=== PATIENT | female | born 1975 | race Caucasian/White ===

== ENCOUNTER 2017-03-19 12:00 | Inpatient (IN) | payer OTHER ==
[~2017-03-19] VITALS: Ht 157.5 cm; Wt 71.4 kg
[2017-03-19 12:04] VITALS: BP 107/64; PULSE 86; RESP 15; TEMP 98.4; O2SAT 98
--- NOTE | 2017-03-19 12:08 | PD ---
Physical Exam Date Seen by Provider: Mar 19, 2017 Time Seen by Provider: 12:05 Narrative Pt is a 41 year old female presenting voluntarily for psychiatric evaluation. Pt reports feeling depressed and overwhelmed. Pt is tearful in triage. She states this has been going on for a while. She states she was taking phentermine for energy which seemed to mask her symptoms. She had been on medications in the past for anxiety, which she discontinued herself.She states she didn't feel comfortable driving her kids while on the medications. Pt reports feeling suicidal. VSS, awaiting bed placement. [facility] Supervised Visit with RENETTA: Terri Mera Mar 19, 2017 12:08
--- NOTE | 2017-03-19 12:28 | PD ---
HPI . suicidal ideation/depression/anxiety Chief Complaint: Suicide Ideation/Attempt Time Seen by Provider: 12:20 Travel History International Travel<30 days: Yes Contact w/Intl Traveler<30days: Yes Name of Country Traveled to: [place] Traveled to known affect area: No History of Present Illness HPI 41- year old female presents to the ED complaining of not feeling well for the past few months. She reports spurts of energy and then insomnia. She reports during the times of energy she does some of the best writing she ever has and has great ideas. She also reports that during the times of energy and feeling well she goes on spending sprees. However, she reports on the opposite spectrum other days she has a tough time just getting out of bed. She reports use of phentermine for years, which she originally used to lose weight. However, she reports now she is using the phentermine for energy. The patient normally receives her phentermine from her primary care, but reports since work is taking so much of her time she has been unable to go see them for a refill. She reports that she uses THC to help her fall asleep at night. She denies any current SI/HI, but reports that they come and go and does have a plan. When asked about the plan the patient became very emotional and was unable to provide details. She reports that she does not feel safe at home because she lives by herself. PFSH Past Medical History Depression: Yes Kidney Stones: Yes Psychiatric: Yes Tetanus Vaccination: Unknown ?: Not Past Surgical History Surgical History: No Previous Surgery Social History Alcohol Use: No Tobacco Use: Yes Substance Use: No Allergies-Medications (Allergen,Severity, Reaction): Coded Allergies: No Known Allergies (Unverified , 03/19/17) Reported Meds & Prescriptions Reported Meds & Active Scripts Active No Active Prescriptions or Reported Medications Review of Systems General / Constitutional: No: Fever, Chills, Weight Gain, Weight Loss, Other Eyes: No: Diploplia, Blurred Vision, Photophobia, Drainage, Redness, Foreign Body Sensation, Pain, Tearing, Blind Spots, Visual changes, Blindness, Other HENT: No: Headaches, Vertigo, Lightheadedness, Sore Throat, Rhinitis, Rhinorrhea, Congestion, Nosebleed, Neck Stiffness, Neck Pain, Masses, Gingival Bleeding, Dental Difficulties, Ear Discharge, Earache, Other Cardiovascular: No: Chest Pain or Discomfort, Palpitations, Irregular Rhythm, Tachycardia, Diaphoresis, Syncope, Dyspnea on exertion, Varicosities, Edema, Cyanosis, Varicosities, Phlebitis, Claudication, Other Respiratory: No: Cough, Shortness of Breath, Wheezing, Sneezing, Orthopnea, Hemoptysis, Stridor, Night Sweats, Pleuritic Pain, Other Gastrointestinal: No: Nausea, Vomiting, Diarrhea, Abdominal Pain, Hematemesis, Hematochezia, Constipation, Changes in Bowel Habits, Indigestion, Dysphagia, Loss of Appetite, Other Genitourinary: No: Urgency, Frequency, Dysuria, Nocturia, Hematuria, Decreased Urinary Output, Oliguria, Hesitancy, Dribbling, Incontinence, Pelvic Pain, Flank Pain, Dyspareunia, Discharge, Dysmenorrhea, Menorrhagia, Metorrhagia, Vaginal Bleeding, Other Musculoskeletal: No: Myalgias, Arthralgias, Limited ROM, Weakness, Cramping, Edema, Pain, Atrophy, Other Skin: No Rash, No Itching, No Dryness, No Lumps, No Hives, No Change in Pigmentation, No Change in nails, No Alopecia, No Lesions, No Breast Lumps, No Breast Tenderness, No Breast Swelling, No Other Neurologic: No: Weakness, Dizziness, Syncope, Focal Abnormalities, Coordination Problem, Tremor, Ataxia, Headache, Change in Mentation, Slurred Speech, Paresthesia, Incontinence, Seizures, Sensory Disturbance, Other Psychiatric: Positive: Anxiety, Depression, Suicidal Ideations, Mood Disorder, Substance Abuse, No: Disorder of Thought, Homicidal Ideation, Other Endocrine: No: Heat Intolerance, Cold Intolerance, Polyuria, Polydipsia, Other Hematologic/Lymphatic: No: Easy Bruising, Lymph Node Enlargement, Other Physical Exam Narrative GENERAL: AAO x3. comfortable in bed SKIN: Warm and dry. HEAD: Atraumatic. Normocephalic. EYES: Pupils equal and round. No scleral icterus. No injection or drainage. ENT: No nasal bleeding or discharge. Mucous membranes pink and moist. NECK: Trachea midline. No JVD. CARDIOVASCULAR: Regular rate and rhythm. RESPIRATORY: No accessory muscle use. Clear to auscultation. Breath sounds equal bilaterally. GASTROINTESTINAL: Abdomen soft, non-tender, nondistended. No rebound or guarding MUSCULOSKELETAL: Extremities without clubbing, cyanosis, or edema. No obvious deformities. NEUROLOGICAL: Awake and alert. No obvious cranial nerve deficits. Motor grossly within normal limits. Five out of 5 muscle strength in the arms and legs. Normal speech. PSYCHIATRIC: Appropriate mood and affect; insight and judgment normal. Data Data Last Documented VS Vital Signs Date Time Temp Pulse Resp B/P (MAP) Pulse Ox O2 Delivery O2 Flow Rate FiO2 03/19/17 12:04 98.4 86 15 107/64 (78) 98 Orders Orders Complete Blood Count With Diff (03/19/17 12:30) Comprehensive Metabolic Panel (03/19/17 12:30) Ed Urine Pregnancytest Poc (03/19/17 12:30) Psych Screen (03/19/17 12:30) Drug Screen, Random Urine (03/19/17 12:30) Labs Laboratory Tests Test 03/19/17 12:40 03/19/17 12:45 White Blood Count 8.9 TH/MM3 Red Blood Count 4.27 MIL/MM3 Hemoglobin 10.9 GM/DL Hematocrit 33.4 % Mean Corpuscular Volume 78.2 FL Mean Corpuscular Hemoglobin 25.5 PG Mean Corpuscular Hemoglobin Concent 32.7 % Red Cell Distribution Width 15.8 % Platelet Count 273 TH/MM3 Mean Platelet Volume 9.7 FL Neutrophils (%) (Auto) 73.5 % Lymphocytes (%) (Auto) 20.2 % Monocytes (%) (Auto) 5.0 % Eosinophils (%) (Auto) 0.6 % Basophils (%) (Auto) 0.7 % Neutrophils # (Auto) 6.6 TH/MM3 Lymphocytes # (Auto) 1.8 TH/MM3 Monocytes # (Auto) 0.4 TH/MM3 Eosinophils # (Auto) 0.1 TH/MM3 Basophils # (Auto) 0.1 TH/MM3 CBC Comment DIFF FINAL Differential Comment Blood Urea Nitrogen 17 MG/DL Creatinine 0.80 MG/DL Random Glucose 89 MG/DL Total Protein 7.3 GM/DL Albumin 3.7 GM/DL Calcium Level 9.1 MG/DL Alkaline Phosphatase 60 U/L Aspartate Amino Transf (AST/SGOT) 18 U/L Alanine Aminotransferase (ALT/SGPT) 21 U/L Total Bilirubin 0.4 MG/DL Sodium Level 138 MEQ/L Potassium Level 3.4 MEQ/L Chloride Level 105 MEQ/L Carbon Dioxide Level 25.9 MEQ/L Anion Gap 7 MEQ/L Estimat Glomerular Filtration Rate 79 ML/MIN Urine Opiates Screen NEG Urine Barbiturates Screen NEG Urine Amphetamines Screen NEG Urine Benzodiazepines Screen NEG Urine Cocaine Screen NEG Urine Cannabinoids Screen POS MDM Medical Decision Making Medical Screen Exam Complete: Yes Emergency Medical Condition: Yes Medical Record Reviewed: Yes Differential Diagnosis Bipolar disorder, Suicidal Ideation, Depression, Anxiety Narrative Course 41 yr old female here with anxiety,depression and suicidal thoughts. She has no medical complaints. Labs have been ordered. She is awaiting psych screen. Laboratory Tests Test 03/19/17 12:40 03/19/17 12:45 White Blood Count 8.9 TH/MM3 Red Blood Count 4.27 MIL/MM3 Hemoglobin 10.9 GM/DL Hematocrit 33.4 % Mean Corpuscular Volume 78.2 FL Mean Corpuscular Hemoglobin 25.5 PG Mean Corpuscular Hemoglobin Concent 32.7 % Red Cell Distribution Width 15.8 % Platelet Count 273 TH/MM3 Mean Platelet Volume 9.7 FL Neutrophils (%) (Auto) 73.5 % Lymphocytes (%) (Auto) 20.2 % Monocytes (%) (Auto) 5.0 % Eosinophils (%) (Auto) 0.6 % Basophils (%) (Auto) 0.7 % Neutrophils # (Auto) 6.6 TH/MM3 Lymphocytes # (Auto) 1.8 TH/MM3 Monocytes # (Auto) 0.4 TH/MM3 Eosinophils # (Auto) 0.1 TH/MM3 Basophils # (Auto) 0.1 TH/MM3 CBC Comment DIFF FINAL Differential Comment Blood Urea Nitrogen 17 MG/DL Creatinine 0.80 MG/DL Random Glucose 89 MG/DL Total Protein 7.3 GM/DL Albumin 3.7 GM/DL Calcium Level 9.1 MG/DL Alkaline Phosphatase 60 U/L Aspartate Amino Transf (AST/SGOT) 18 U/L Alanine Aminotransferase (ALT/SGPT) 21 U/L Total Bilirubin 0.4 MG/DL Sodium Level 138 MEQ/L Potassium Level 3.4 MEQ/L Chloride Level 105 MEQ/L Carbon Dioxide Level 25.9 MEQ/L Anion Gap 7 MEQ/L Estimat Glomerular Filtration Rate 79 ML/MIN Urine Opiates Screen NEG Urine Barbiturates Screen NEG Urine Amphetamines Screen NEG Urine Benzodiazepines Screen NEG Urine Cocaine Screen NEG Urine Cannabinoids Screen POS I discussed results with patient and she is awaiting psych screen. patient medically cleared for psych screen. Diagnosis Primary Impression: Anxiety Additional Impression: Suicidal thoughts Scripts No Active Prescriptions or Reported Meds Condition: Stable Romina Ring Mar 19, 2017 12:28
[2017-03-19 12:59] LABS: AUTOMATED NEUTROPHIL # 6.6 TH/MM3 (1.8-7.7); BASOPHIL # 0.1 TH/MM3 (0-0.2); BASOPHIL % 0.7 % (0.0-2.0); EOSINOPHIL # 0.1 TH/MM3 (0-0.4); EOSINOPHIL % 0.6 % (0.0-4.0); HEMATOCRIT 33.4 % (35.0-46.0); HEMO FLAGS DIFF FINAL; LYMPH % 20.2 % (9.0-44.0); LYMPHOCYTE # 1.8 TH/MM3 (1.0-4.8); MEAN CELL VOLUME 78.2 FL (80.0-100.0); MEAN CORPUSCULAR HEMOGLOBIN 25.5 PG (27.0-34.0); MEAN CORPUSCULAR HGB CONC 32.7 % (32.0-36.0); NEUT % 73.5 % (16.0-70.0); PLATELET COUNT 273 TH/MM3 (150-450); RED BLOOD COUNT 4.27 MIL/MM3 (4.00-5.30); RED CELL DISTRIBUTION WIDTH 15.8 % (11.6-17.2); WHITE BLOOD COUNT 8.9 TH/MM3 (4.0-11.0)
[2017-03-19 13:21] LABS: ANION GAP 7 MEQ/L (5-15); AST (GOT) 18 U/L (15-37); BICARBONATE 25.9 MEQ/L (21.0-32.0); BLOOD UREA NITROGEN 17 MG/DL (7-18); CHLORIDE 105 MEQ/L (98-107); GLOMERULAR FILTRATION RATE 79 ML/MIN (>89); POTASSIUM 3.4 MEQ/L (3.5-5.1); SODIUM (NA) 138 MEQ/L (136-145)
[2017-03-19 13:22] LABS: ALT (GPT) 21 U/L (10-53)
[2017-03-19 13:24] LABS: ALKALINE PHOSPHATASE 60 U/L (45-117); TOTAL BILIRUBIN ADULT 0.4 MG/DL (0.2-1.0)
[2017-03-19 15:18] VITALS: BP 110/70; PULSE 84; RESP 18; O2SAT 100
[2017-03-19] MEDS ORDERED: ACETAMINOPHEN 325 MG TAB PO PRN (15:30)
[2017-03-19] MEDS ORDERED: ALUMINUM/MAGNESIUM/SIMETH 30 ML CUP PO PRN (15:30)
[2017-03-19] MEDS ORDERED: LORazepam 2 MG/ML VIAL IM PRN ×2 (15:30)
[2017-03-19] MEDS ORDERED: MAGNESIUM HYDROXIDE SUSP 30 ML CUP PO PRN (15:30)
[2017-03-19] MEDS ORDERED: LORazepam 0.5 MG TAB PO PRN (15:30)
--- NOTE | 2017-03-19 15:37 | HHI.HP ---
Provisional Diagnosis Admission Date [place] I. Bipolar, mixed type Certification of Person's Competence To Provide Express and Informed Consent I have personally examined Lindsay Rice , a person being served at [facility] on, Mar 19, 2017 15:25. Express and informed consent means consent voluntarily given in writing, by a competent person, after sufficient explanation and disclosure of the subject matter involved to enable the person to make a knowing and willful decision without any element of force, fraud, deceit, duress, or other form of constraint or coercion. This person is 18 years of age or older, is not now known to be incompetent to consent to treatment with a guardian advocate, and does not have a health care surrogate or proxy currently making medical treatment decisions. I have found this person to be one of the following: [x] Competent to provide express and informed consent, as defined above, for voluntary admission to this facility and is competent to provide express and informed consent for treatment. He/she has the consistent capacity to make well reasoned, willful, and knowing decisions concerning his or her medical or mental health treatment. The person fully and consistently understands the purpose of the admission for examination/placement and is fully capable of personally exercising all rights assured [place] Incompetent to provide express and informed consent to voluntary admission, and this is incompetent to provide express and informed consent to treatment. The person must be transferred to involuntary status and a petition for a guardian advocate filed with the Circuit Court. [] Refusing to provide express and informed consent to voluntary admission but is competent to provide express and informed consent for treatment. The person must be discharged or transferred to involuntary status. Form shall be completed within 24 hours of a person's arrival at the receiving facility and filed in the clinical record of each person: 1. Admitted on a voluntary basis 2. Permitted to provide express and informed consent to his/her own treatment 3. Allowed to transfer from involuntary to voluntary status 4. Prior to permitting a person to consent to his or her own treatment after having been previously found incompetent to consent to treatment. History of Present Illness Capacity: Has Capacity HPI 41-year-old female Long acted by this physician for suicidal ideation and mixed bipolar disorder. This is the patient's first psychiatric hospitalization. Apparently over the last several weeks she has become increasingly manic with pressured speech, flight of ideas, racing thoughts, increasing goal-directed activity, inability to sleep, loss of appetite, excessive spending, etc. She was brought in today by her sister. The sister both in person and over the phone feels the patient's behavior has become much different than baseline. The sister confirmed the patient's suicidal thinking. The sister also provided information indicating the father is diagnosed with bipolar disorder. Patient is a very poor historian as she jumps from thought to thought in the midst of crying and making little sense. Review of Systems ROS Limitations: Clinical Condition Except as stated in HPI: all other systems reviewed are Neg Past Psych History Psychological trauma history Denied Violence risk - others (6 mos) Minimal to moderate Violence risk - self (6 mos) High Substance Abuse History Drugs/Alcohol past 12 months Reportedly taking diet pills which may have instigated this episode of kristel and depression. Patient denies substance abuse. Past Family Social History Coded Allergies: No Known Allergies (Unverified , 03/19/17) No Active Prescriptions or Reported Meds Family History Positive for bipolar disorder. Social History Patient lives with her of approximately 2 years and their 2 children. 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 However, she is unable to provide a good and cogent history. She is markedly distraught, tearful and unable to calmly discuss her situation. Patient's Strengths (min. 2) Resilient and has access to healthcare. Physical Exam GENERAL: SKIN: Warm and dry. HEAD: Normocephalic. EYES: No scleral icterus. No injection or drainage. NECK: Supple, trachea midline. No JVD or lymphadenopathy. CARDIOVASCULAR: Regular rate and rhythm without murmurs, gallops, or rubs. RESPIRATORY: Breath sounds equal bilaterally. No accessory muscle use. GASTROINTESTINAL: Abdomen soft, non-tender, nondistended. MUSCULOSKELETAL: No cyanosis, or edema. BACK: Nontender without obvious deformity. No CVA tenderness. Vital Signs Vital Signs Date Time Temp Pulse Resp B/P (MAP) Pulse Ox O2 Delivery O2 Flow Rate FiO2 03/19/17 15:18 84 18 110/70 (83) 100 Room Air 03/19/17 12:04 98.4 Lab Results Test 03/19/17 12:40 03/19/17 12:45 White Blood Count 8.9 TH/MM3 Red Blood Count 4.27 MIL/MM3 Hemoglobin 10.9 GM/DL Hematocrit 33.4 % Mean Corpuscular Volume 78.2 FL Mean Corpuscular Hemoglobin 25.5 PG Mean Corpuscular Hemoglobin Concent 32.7 % Red Cell Distribution Width 15.8 % Platelet Count 273 TH/MM3 Mean Platelet Volume 9.7 FL Neutrophils (%) (Auto) 73.5 % Lymphocytes (%) (Auto) 20.2 % Monocytes (%) (Auto) 5.0 % Eosinophils (%) (Auto) 0.6 % Basophils (%) (Auto) 0.7 % Neutrophils # (Auto) 6.6 TH/MM3 Lymphocytes # (Auto) 1.8 TH/MM3 Monocytes # (Auto) 0.4 TH/MM3 Eosinophils # (Auto) 0.1 TH/MM3 Basophils # (Auto) 0.1 TH/MM3 CBC Comment DIFF FINAL Differential Comment Blood Urea Nitrogen 17 MG/DL Creatinine 0.80 MG/DL Random Glucose 89 MG/DL Total Protein 7.3 GM/DL Albumin 3.7 GM/DL Calcium Level 9.1 MG/DL Alkaline Phosphatase 60 U/L Aspartate Amino Transf (AST/SGOT) 18 U/L Alanine Aminotransferase (ALT/SGPT) 21 U/L Total Bilirubin 0.4 MG/DL Sodium Level 138 MEQ/L Potassium Level 3.4 MEQ/L Chloride Level 105 MEQ/L Carbon Dioxide Level 25.9 MEQ/L Anion Gap 7 MEQ/L Estimat Glomerular Filtration Rate 79 ML/MIN Urine Opiates Screen NEG Urine Barbiturates Screen NEG Urine Amphetamines Screen NEG Urine Benzodiazepines Screen NEG Urine Cocaine Screen NEG Urine Cannabinoids Screen POS Mental Status Examination Speech: Pressured Orientation: x3 Memory: Unremarkable Thought Process: Flight of Ideas, Goal Directed Thought Content: Depersonal, Bizarre thinking, Derealization, Ideas of Reference Hallucination Type: None Attention and Concentration: Easily Distracted Suicidal Ideation: Yes Previous Suicide Attempts: No Homicidal Ideation: No Previous Homicide Attempts: No Insight: Fair Judgment: Unrealistic Affect: Anxious, Sad Affect if Inappropriate: Labile Mood: Sad, Anxious Motor Activity: Normal gait Assessment & Plan Problem List: (1) Bipolar disorder, curr episode mixed, severe, w/o psychotic features ICD Codes: F31.63 - Bipolar disorder, current episode mixed, severe, without psychotic features Status: Acute Assessment & Plan Estimated LOS: days 41-year-old female placed under a Long act by this physician for what appears to be her first severe bipolar episode with suicidal thinking. Patient is on the cusp of being psychotic and she exhibits bizarre thinking with flight of ideas as well as suicidal ideation. She is felt to be at high risk for self-harm. Patient being admitted for evaluation and treatment. This physician is ordering a CBC and comprehensive metabolic panel to assess whether the patient has an infection or metabolic process that is causing or contributing to her psychiatric condition. Additionally, we will obtain a thyroid stimulating hormone level, vitamin B-12 level and vitamin D level to determine if any deficiencies in these areas are causing or contributing to her current mixed manic and depressed state. This physician spoke with the patient's nurse and the patient's sister regarding her current condition and we will involve case management to obtain further information and assist with disposition planning. The patient is also to receive an EKG in case cardiac conduction issues warrant investigation prior to starting psychotropic medicines. In the meantime, we will offer the patient benzodiazepines to help her with her current distress. Bryson Mansfield MD Mar 19, 2017 15:37
[2017-03-19] MEDS ORDERED: clonazePAM 1 MG TAB PO PRN (15:45)
[2017-03-19 16:26] VITALS: BP 122/81; PULSE 67; RESP 18; O2SAT 98
[2017-03-19 18:56] VITALS: BP 123/65; PULSE 72; RESP 18; O2SAT 100
[2017-03-19 20:15] VITALS: BP 109/60; PULSE 67; RESP 18; TEMP 97.8; O2SAT 99
[2017-03-19] MEDS: LORazepam 1 MG TAB PO PRN (21:40)
[2017-03-20 06:27] VITALS: BP_SYST 102; BP_SYST 90; BP_DIAS 63; BP_DIAS 68; PULSE 90; RESP 18; TEMP 98; O2SAT 100
[2017-03-20] MEDS: LORazepam 1 MG TAB PO PRN (09:53)
[2017-03-20] MEDS: NICOTINE 21 MG/24 HR PATCH T-DERMAL SCH (12:11)
[2017-03-20 12:55] LABS: AUTOMATED NEUTROPHIL # 5.9 TH/MM3 (1.8-7.7); BASOPHIL # 0.1 TH/MM3 (0-0.2); BASOPHIL % 0.7 % (0.0-2.0); EOSINOPHIL # 0.1 TH/MM3 (0-0.4); EOSINOPHIL % 0.9 % (0.0-4.0); HEMATOCRIT 35.1 % (35.0-46.0); HEMO FLAGS DIFF FINAL; LYMPH % 23.6 % (9.0-44.0); LYMPHOCYTE # 2.1 TH/MM3 (1.0-4.8); MEAN CELL VOLUME 79.2 FL (80.0-100.0); MEAN CORPUSCULAR HEMOGLOBIN 25.8 PG (27.0-34.0); MEAN CORPUSCULAR HGB CONC 32.5 % (32.0-36.0); MONO % 7.7 % (0.0-8.0); NEUT % 67.1 % (16.0-70.0); PLATELET COUNT 286 TH/MM3 (150-450); RED BLOOD COUNT 4.43 MIL/MM3 (4.00-5.30); RED CELL DISTRIBUTION WIDTH 15.5 % (11.6-17.2); WHITE BLOOD COUNT 8.8 TH/MM3 (4.0-11.0)
[2017-03-20 13:18] LABS: ANION GAP 11 MEQ/L (5-15); BICARBONATE 25.5 MEQ/L (21.0-32.0); BLOOD UREA NITROGEN 14 MG/DL (7-18); CHLORIDE 103 MEQ/L (98-107); GLOMERULAR FILTRATION RATE 86 ML/MIN (>89); POTASSIUM 3.4 MEQ/L (3.5-5.1); SODIUM (NA) 139 MEQ/L (136-145)
[2017-03-20 14:13] LABS: ALKALINE PHOSPHATASE 63 U/L (45-117); ALT (GPT) 24 U/L (10-53); AST (GOT) 14 U/L (15-37); HDL CHOLESTEROL 56.1 MG/DL (40.0-60.0); LDL CHOLESTEROL 121 MG/DL (0-99); TOTAL BILIRUBIN ADULT 0.4 MG/DL (0.2-1.0)
--- NOTE | 2017-03-20 15:05 | HHI.PYPN ---
Subjective Remarks Patient is a 41 y/o woman with unclear past psychiatric history but past diagnoses of anxiety and panic disorder as per patient, no prior psychiatric hospitalizations, prior suicide attempt or self-injurious behavior, was recently under Long act due to increased manic symptoms for the past several weeks in the context of recent ingestion of diet pills (phentermine) and marijuana use to manage her mood. Patient was seen on inpatient psychiatric unit found in [facility], cooperative in interview but noted to be tearful during evaluation. Patient reports that she has suffered from a panic episode 3 years ago and since has been self-medicating with phentermine to give her a boost of energy and marijuana to help her relax. 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 Patient states that recently for the past couple weeks she began again to have decreased need for sleep. Due to be hyperverbal, with increased goal-directed activity in which she was describes writing out plans for her company without stopping, difficulty concentration increased spending, disorganized thought and difficulty with organization. Patient states that she her brain is on fire with increased energy but denies any psychotic symptoms at this time. Patient recalls that when she was riding says lately she began running out a plan for her company and ended up writing about a conspiracy which she later was able to notice and was very distressing to her. She states that she knew she needed help and brought herself to the hospital and was upset that she was put under Long act. At this time patient reports feeling scared denies any SI, HI, any perceptual disturbances and no delusions at this time. Past psychiatric history: Previous diagnosis of anxiety/panic disorder, denies any previous psychiatric hospitalizations or medication trials, denies any previous suicide attempt or self-injurious behavior. Patient reports having been treated by mental health provider which are living in [place] more 3 years ago during her episode of anxiety and panic and was treated with Ativan and Wellbutrin. Patient last mental health provider was Dr. Mckeon. Family psychiatric history: Father with bipolar disorder Substance use history: Tobacco use (+), denies any alcohol use, marijuana use frequency last use unspecified. Denies use of any other substance aside from the diet pillsphentermine. 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 Test 03/20/17 11:36 03/20/17 11:37 White Blood Count 8.8 TH/MM3 Red Blood Count 4.43 MIL/MM3 Hemoglobin 11.4 GM/DL Hematocrit 35.1 % Mean Corpuscular Volume 79.2 FL Mean Corpuscular Hemoglobin 25.8 PG Mean Corpuscular Hemoglobin Concent 32.5 % Red Cell Distribution Width 15.5 % Platelet Count 286 TH/MM3 Mean Platelet Volume 10.3 FL Neutrophils (%) (Auto) 67.1 % Lymphocytes (%) (Auto) 23.6 % Monocytes (%) (Auto) 7.7 % Eosinophils (%) (Auto) 0.9 % Basophils (%) (Auto) 0.7 % Neutrophils # (Auto) 5.9 TH/MM3 Lymphocytes # (Auto) 2.1 TH/MM3 Monocytes # (Auto) 0.7 TH/MM3 Eosinophils # (Auto) 0.1 TH/MM3 Basophils # (Auto) 0.1 TH/MM3 CBC Comment DIFF FINAL Differential Comment Blood Urea Nitrogen 14 MG/DL Creatinine 0.74 MG/DL Random Glucose 71 MG/DL Total Protein 8.2 GM/DL Albumin 4.1 GM/DL Calcium Level 9.3 MG/DL Alkaline Phosphatase 63 U/L Aspartate Amino Transf (AST/SGOT) 14 U/L Alanine Aminotransferase (ALT/SGPT) 24 U/L Total Bilirubin 0.4 MG/DL Sodium Level 139 MEQ/L Potassium Level 3.4 MEQ/L Chloride Level 103 MEQ/L Carbon Dioxide Level 25.5 MEQ/L Anion Gap 11 MEQ/L Estimat Glomerular Filtration Rate 86 ML/MIN Triglycerides Level 88 MG/DL Cholesterol Level 195 MG/DL LDL Cholesterol 121 MG/DL HDL Cholesterol 56.1 MG/DL Cholesterol/HDL Ratio 3.47 RATIO Vitamin B12 Level 660 PG/ML 25-Hydroxy Vitamin D Total 15.4 ng/ML Thyroid Stimulating Hormone 3rd Gen 2.150 uIU/ML Vitals/IOs Vital Signs Date Time Temp Pulse Resp B/P (MAP) Pulse Ox O2 Delivery O2 Flow Rate FiO2 03/20/17 06:27 98.0 90 18 90/63 (72) 100 102/68 (79) 03/19/17 18:56 Room Air Assessment & Plan Problem List: (1) Bipolar disorder, curr episode mixed, severe, w/o psychotic features ICD Codes: F31.63 - Bipolar disorder, current episode mixed, severe, without psychotic features Status: Acute Assessment & Plan Patient is a 41-year-old woman who carries a diagnosis of anxiety/panic disorder with no prior psychiatric hospitalizations. They have an increase in manic symptoms for the past several weeks in the context of use of phentermine and marijuana to manage her mood which at this time has an increased severity of her manic symptoms which requires inpatient psychiatric hospitalization for stabilization. Patient agrees for voluntary admission. Well start monotherapy for bipolar disorder mixed episode, with olanzapine 5 mg by mouth at bedtime with upper titration. Discharge planning in progress. Justification for Cont. Inpt. At risk for further decompensation if at lower level of care. Con Florentino MD Mar 20, 2017 15:05
[2017-03-20 15:31] LABS: HEMOGLOBIN A1a 1.2 %; HEMOGLOBIN Ao 84.8 %; HEMOGLOBIN F 1.1 %; HEMOGLOBIN P3 3.9 %
[2017-03-20 18:16] VITALS: BP 122/55; PULSE 104; RESP 19; TEMP 98; O2SAT 100
[2017-03-20] MEDS ORDERED: OLANZapine 5 MG TAB PO SCH (21:00)
[2017-03-21 06:59] VITALS: BP 91/55; PULSE 79; RESP 16; TEMP 98.5; O2SAT 99
[2017-03-21] MEDS: REMOVE OLD PATCH T-DERMAL SCH (09:00)
[2017-03-21] MEDS: NICOTINE 21 MG/24 HR PATCH T-DERMAL SCH (09:00)
--- NOTE | 2017-03-21 16:44 | EKG ---
Date Performed: 03/20/2017 Time Performed: 13:39:09 PTAGE: 41 years EKG: Sinus rhythm WITH SINUS ARRHYTHMIA INDETERMINATE AXIS ATYPICAL ECG NO PREVIOUS TRACING DOCTOR: Linda Keen Interpretating Date/Time 03/21/2017 16:39:45
--- NOTE | 2017-03-21 17:27 | HHI.PYPN ---
Subjective Remarks Patient seen for follow-up, chart reviewed. Patient seen for follow-up, chart reviewed. Patient noted to be tearful at times throughout interview today. Patient stated that she had been feeling "good and bad". Patient states that since the commencement of treatment yesterday she noticed that she is able to articulate a little better, feels she is able to formally her thought slightly better, but continues to notice to have difficulty with concentration tasks, continues to have disorganized thoughts at times and feeling anxious. Patient reports having slept well yesterday. At this time patient denies any SI, HI, AVH or delusions. Review of Systems Except as stated in HPI: all other systems reviewed are Neg Objective Alert: Yes [place]: Person, Place, Date, Situation Mood: Anxious Affect: Labile Memory Intact: Comment (intact) Hallucinations: Other (denies) Delusions: Yes Delusion Type: Grandiose (some grandiosity) Suicidal: Ideation (denies) Homicidal: Ideation (denies) Insight/Judgment Fair insight, limited impulse control, fair judgment Vitals/IOs Vital Signs Date Time Temp Pulse Resp B/P (MAP) Pulse Ox O2 Delivery O2 Flow Rate FiO2 03/21/17 06:59 98.5 79 16 91/55 (67) 99 03/19/17 18:56 Room Air Intake and Output 03/21/17 03/21/17 03/22/17 08:00 16:00 00:00 Intake Total 240 ml Balance 240 ml Assessment & Plan Problem List: (1) Bipolar disorder, curr episode mixed, severe, w/o psychotic features ICD Codes: F31.63 - Bipolar disorder, current episode mixed, severe, without psychotic features Status: Acute Assessment & Plan Patient this time continues to have some disorganized thought, difficulty concentration, increased goal-directed activities but slightly less pressured speech today, with better articulation during interview. We'll increase olanzapine to 10 mg by mouth at bedtime, start clonazepam 0.5 mg by mouth every 12 hrs. Monitored for medication response and adverse drug reactions. Discharge planning in progress Justification for Cont. Inpt. At risk for further decompensation if at lower level of care. Con Florentino MD Mar 21, 2017 17:27
[2017-03-21 18:35] VITALS: BP 111/66; PULSE 78; RESP 18; TEMP 97.3; O2SAT 97
[2017-03-21] MEDS: PANTOPRAZOLE SOD 20 MG DELAYED RELEASE TAB PO SCH (20:29)
[2017-03-21] MEDS: clonazePAM 0.5 MG TAB PO SCH (20:29)
[2017-03-21] MEDS: OLANZapine 5 MG TAB PO SCH (20:29)
[2017-03-22 06:09] VITALS: BP 84/53; PULSE 56; RESP 16; TEMP 98.1; O2SAT 99
[2017-03-22] MEDS: clonazePAM 0.5 MG TAB PO SCH ×2 (08:56→21:35)
[2017-03-22] MEDS: PANTOPRAZOLE SOD 20 MG DELAYED RELEASE TAB PO SCH (08:56)
[2017-03-22] MEDS: NICOTINE 21 MG/24 HR PATCH T-DERMAL SCH (08:56)
[2017-03-22] MEDS: REMOVE OLD PATCH T-DERMAL SCH (09:00)
--- NOTE | 2017-03-22 16:31 | HHI.PYPN ---
Subjective Remarks Patient seen for follow-up, chart reviewed. Patient found to be less labile today, calm and cooperative with interview. Patient states that she has been attending groups and today feeling "foggy" but reports having slept well. She states that she feels that she has slowed down a bit and is unsure if its because of the decrease in kristel or side effects of the medications. Patient agrees to continue current treatment. Review of Systems Except as stated in HPI: all other systems reviewed are Neg Objective Alert: Yes [place]: Person, Place, Date, Situation Mood: Calm Affect: Appropriate Memory Intact: Comment (intact) Hallucinations: Other (denies) Delusions: No Delusion Type: Other (denies) Suicidal: Ideation (denies) Homicidal: Ideation (denies) Insight/Judgment imporoved insight, impulse control and judgement Vitals/IOs Vital Signs Date Time Temp Pulse Resp B/P (MAP) Pulse Ox O2 Delivery O2 Flow Rate FiO2 03/22/17 06:09 98.1 56 16 84/53 (63) 99 Manual Cuff/Doppler 03/19/17 18:56 Room Air Intake and Output 03/22/17 03/22/17 03/23/17 08:00 16:00 00:00 Intake Total 240 ml 240 ml Balance 240 ml 240 ml Assessment & Plan Problem List: (1) Bipolar disorder, curr episode mixed, severe, w/o psychotic features ICD Codes: F31.63 - Bipolar disorder, current episode mixed, severe, without psychotic features Status: Acute Assessment & Plan Patient starting to respond to treatment, noted with less lability and more organized thoughts. [place] reported feeling too "foggy", will decrease clonazepam to 0.5mg PO once daily. continue olanzapine 10mg PO HS for mood stabilization. Discharge planning in progress. Justification for Cont. Inpt. At risk for decompensation if at lower level of care Con Florentino MD Mar 22, 2017 16:31
[2017-03-22 18:24] VITALS: BP 111/72; PULSE 98; RESP 18; TEMP 98.6; O2SAT 98
[2017-03-22] MEDS: OLANZapine 5 MG TAB PO SCH (21:35)
[2017-03-23 06:13] VITALS: BP 99/59; PULSE 69; RESP 16; TEMP 98.7; O2SAT 100
[2017-03-23] MEDS: PANTOPRAZOLE SOD 20 MG DELAYED RELEASE TAB PO SCH (08:36)
[2017-03-23] MEDS: NICOTINE 21 MG/24 HR PATCH T-DERMAL SCH (08:37)
[2017-03-23] MEDS: REMOVE OLD PATCH T-DERMAL SCH (08:37)
--- NOTE | 2017-03-23 12:54 | HHI.PYPN ---
Subjective Remarks Patient Rebecca, chart reviewed. Patient found but his primary activities was able to engage in interview today. Patient stated that she had been feeling "well" reports tolerating medications well and reports continuing feeling "manic " at times noticing that she is hyperverbal at times and having noticed 3 episodes where she was reading the Bible is started highlighting making notes which she then realizes this and discontinues to do this activity. Patient noted that her impulse control continues to be poor in that she 2 days ago and provided another patient on the unit was homeless to stay with her sister which she then recanted yesterday after realizing what she had done. Patient reports sleeping well, appetite is back to normal. She reports her mood being "perkier and happier" affect but continues reported having occasional crying spells. Review of Systems Except as stated in HPI: all other systems reviewed are Neg Objective Alert: Yes [place]: Person, Place, Date, Situation Mood: Calm Affect: Appropriate Memory Intact: Comment (intact) Hallucinations: Other (denies) Delusions: No Delusion Type: Other (denies) Suicidal: Ideation (denies) Homicidal: Ideation (denies) Insight/Judgment Improved insight, impulse control and judgment Vitals/IOs Vital Signs Date Time Temp Pulse Resp B/P (MAP) Pulse Ox O2 Delivery O2 Flow Rate FiO2 03/23/17 06:13 98.7 69 16 99/59 (72) 100 03/19/17 18:56 Room Air Assessment & Plan Problem List: (1) Bipolar disorder, curr episode mixed, severe, w/o psychotic features ICD Codes: F31.63 - Bipolar disorder, current episode mixed, severe, without psychotic features Status: Acute Assessment & Plan Patient at times noted to have improvement in impulsivity, but to be less pressured speech, less labile mood and improved sleep and more organized thought process. We'll increase olanzapine 15 mg by mouth at bedtime for mood stabilization We will decrease clonazepam to 0.5 mg by mouth daily. Months for medication response adverse drug reactions. Discharge planning in progress Justification for Cont. Inpt. At risk for further decompensation if at lower level of care. Con Florentino MD Mar 23, 2017 12:54
[2017-03-23] MEDS: clonazePAM 0.5 MG TAB PO SCH (13:22)
[2017-03-23 18:19] VITALS: BP 107/59; PULSE 68; RESP 16; TEMP 98.6; O2SAT 99
[2017-03-23] MEDS: LORazepam 1 MG TAB PO PRN (21:58)
[2017-03-24 06:14] VITALS: BP 96/55; PULSE 59; RESP 18; TEMP 97.7; O2SAT 96
[2017-03-24] MEDS: REMOVE OLD PATCH T-DERMAL SCH (09:00)
[2017-03-24] MEDS: NICOTINE 21 MG/24 HR PATCH T-DERMAL SCH (09:33)
[2017-03-24] MEDS: clonazePAM 0.5 MG TAB PO SCH (09:33)
[2017-03-24] MEDS: PANTOPRAZOLE SOD 20 MG DELAYED RELEASE TAB PO SCH (09:33)
--- NOTE | 2017-03-24 16:19 | HHI.PYPN ---
Subjective Remarks Patient was seen and case discussed with nursing. Today patient is perseverative on the peculiarities of her diet. And discontinuation of clonazepam. She says she is sedated and sleeping have the day. She is looking for another medication for anxiety. Mood today is "clouded because of clonazepam." Denies suicidal or homicidal ideation intent or plan. Objective Alert: Yes [place]: Person, Place, Date, Situation Mood: Calm Affect: Appropriate Memory Intact: Comment (intact) Hallucinations: Other (denies) Delusions: No Delusion Type: Other (denies) Suicidal: Ideation (denies) Homicidal: Ideation (denies) Insight/Judgment Poor Vitals/IOs Vital Signs Date Time Temp Pulse Resp B/P (MAP) Pulse Ox O2 Delivery O2 Flow Rate FiO2 03/24/17 06:14 97.7 59 18 96/55 (69) 96 Assessment & Plan Problem List: (1) Bipolar disorder, curr episode mixed, severe, w/o psychotic features ICD Codes: F31.63 - Bipolar disorder, current episode mixed, severe, without psychotic features Status: Acute Assessment & Plan We'll start taper off clonazepam, lowered to 0.25 mg daily. Consider other choices such as Neurontin or Atarax Justification for Cont. Inpt. Patient will decompensate in a less restrictive setting Galindo Charles DO Mar 24, 2017 16:19
[2017-03-24 18:00] VITALS: BP 135/79; PULSE 100; TEMP 97.8
[2017-03-24 21:30] LABS: BACTERIA, URINE FEW /hpf; BLOOD, URINE NEG (NEG); COMMENT (UR) CULT NOT INDICATED; CULTURE IF INDICATED CULT NOT INDICATED; GLUCOSE,URINE NEG (NEG); KETONE, URINE NEG (NEG); MUCUS URINE FEW /lpf (OCC); NITRITE,URINE NEG (NEG); SQUAMOUS EPITHELIAL CELL URINE <1 /hpf (0-5); URINE COLOR YELLOW (YELLW/STRAW)
[2017-03-25 06:08] VITALS: BP 99/57; PULSE 61; RESP 15; TEMP 98; O2SAT 97
[2017-03-25] MEDS: NICOTINE 21 MG/24 HR PATCH T-DERMAL SCH (09:00)
[2017-03-25] MEDS: REMOVE OLD PATCH T-DERMAL SCH (09:00)
[2017-03-25] MEDS: LORazepam 1 MG TAB PO PRN ×2 (09:13→22:26)
[2017-03-25] MEDS: PANTOPRAZOLE SOD 20 MG DELAYED RELEASE TAB PO SCH (09:13)
[2017-03-25] MEDS ORDERED: clonazePAM 0.5 MG TAB PO SCH (13:00)
--- NOTE | 2017-03-25 14:48 | HHI.PYPN ---
Subjective Remarks Patient was seen and case discussed with nursing. Patient is pleasant and cooperative during the interview. We decreased Klonopin yesterday and she says she wants to discontinue it today. Continues to complain of "anxiety." Says she "went off on a therapist." It is unclear if this is anxiety or mood lability. Patient is asking for another medication given bipolar we will avoid SSRIs and start Neurontin 100 mg by mouth 3 times a day. Objective Alert: Yes [place]: Person, Place, Date, Situation Mood: Calm Affect: Appropriate Memory Intact: Comment (intact) Hallucinations: Other (denies) Delusions: No Delusion Type: Other (denies) Suicidal: Ideation (denies) Homicidal: Ideation (denies) Insight/Judgment Fair Labs Test 03/24/17 21:04 Urine Color YELLOW Urine Turbidity HAZY Urine pH 8.0 Urine Specific [place] 1.018 Urine Protein NEG mg/dL Urine Glucose (UA) NEG mg/dL Urine Ketones NEG mg/dL Urine Occult Blood NEG Urine Nitrite NEG Urine Bilirubin NEG Urine Urobilinogen LESS THAN 2.0 MG/DL Urine Leukocyte Esterase NEG Urine RBC 1 /hpf Urine WBC 1 /hpf Urine Squamous Epithelial Cells <1 /hpf Urine Amorphous Sediment OCC Urine Bacteria FEW /hpf Urine Mucus FEW /lpf Microscopic Urinalysis Comment CULT NOT INDICATED Vitals/IOs Vital Signs Date Time Temp Pulse Resp B/P (MAP) Pulse Ox O2 Delivery O2 Flow Rate FiO2 03/25/17 06:08 98.0 61 15 99/57 (71) 97 Assessment & Plan Problem List: (1) Bipolar disorder, curr episode mixed, severe, w/o psychotic features ICD Codes: F31.63 - Bipolar disorder, current episode mixed, severe, without psychotic features Status: Acute Assessment & Plan DC Klonopin, start Neurontin 100 mg by mouth 3 times a day Justification for Cont. Inpt. Patient would decompensate in a less restrictive setting Galindo Charles DO Mar 25, 2017 14:48
[2017-03-25] MEDS: GABAPENTIN 100 MG CAP PO SCH ×2 (15:27→19:00)
[2017-03-26 05:36] VITALS: BP 102/59; PULSE 83; RESP 17; TEMP 98; O2SAT 100
[2017-03-26] MEDS: NICOTINE 21 MG/24 HR PATCH T-DERMAL SCH (09:00)
[2017-03-26] MEDS: REMOVE OLD PATCH T-DERMAL SCH (09:00)
[2017-03-26] MEDS: GABAPENTIN 100 MG CAP PO SCH ×3 (09:14→17:58)
[2017-03-26] MEDS: PANTOPRAZOLE SOD 20 MG DELAYED RELEASE TAB PO SCH (09:14)
[2017-03-26] MEDS: clonazePAM 0.5 MG TAB PO SCH ×2 (11:15→20:33)
[2017-03-26] MEDS ORDERED: PILL SPLITTER OTHER PRN (11:30)
--- NOTE | 2017-03-26 16:53 | HHI.PYPN ---
Subjective Remarks Patient seen for follow-up, chart reviewed. Patient found in day room interacting with others peers but able to engage in interview today. Patient states that over the weekend these have been "okay". Patient states that she feels the medications are helping reports that she continues to feel "euphoric episodes" during the day. Patient states that the medication has improved her mood and ability to focus and concentrate but feels that she is not at her baseline yet. As per nursing report patient is noted to be somewhat intrusive with other patients. Patient reports that she was started on gabapentin to help her anxiety but also states that the clonazepam might have been helpful for her to have less "euphoric episodes". Patient reports that she will be visited by her this evening and states that he did not completely understand her current illness. Review of Systems Except as stated in HPI: all other systems reviewed are Neg Objective Alert: Yes [place]: Person, Place, Date, Situation Mood: Calm Affect: Appropriate Memory Intact: Comment (intact) Hallucinations: Other (denies) Delusions: No Delusion Type: Other (denies) Suicidal: Ideation (denies) Homicidal: Ideation (denies) Insight/Judgment Limited insight, impulse control and judgment Vitals/IOs Vital Signs Date Time Temp Pulse Resp B/P (MAP) Pulse Ox O2 Delivery O2 Flow Rate FiO2 03/26/17 05:36 98.0 83 17 102/59 (73) 100 Assessment & Plan Problem List: (1) Bipolar disorder, curr episode mixed, severe, w/o psychotic features ICD Codes: F31.63 - Bipolar disorder, current episode mixed, severe, without psychotic features Status: Acute Assessment & Plan Patient at this time continues to have some mood lability, intrusiveness while on the unit but noted to have some improvement since that initial presentation. We'll increase olanzapine to 20 mg by mouth at bedtime for mood stabilization , we'll increase clonazepam 0.25 mg by mouth twice a day for the same. Monitor for medication response adverse drug reactions. Discharge planning in progress Justification for Cont. Inpt. At risk for decompensation if it lower level of care Con Florentino MD Mar 26, 2017 16:53
[2017-03-26 18:00] VITALS: BP 108/59; PULSE 89; RESP 16; TEMP 98.6; O2SAT 100
[2017-03-26] MEDS: OLANZapine 10 MG TAB PO SCH (20:33)
[2017-03-27 06:16] VITALS: BP 98/53; PULSE 61; RESP 16; TEMP 98.6
[2017-03-27] MEDS: clonazePAM 0.5 MG TAB PO SCH ×2 (08:58→21:00)
[2017-03-27] MEDS: PANTOPRAZOLE SOD 20 MG DELAYED RELEASE TAB PO SCH (09:00)
[2017-03-27] MEDS: GABAPENTIN 100 MG CAP PO SCH (09:00)
[2017-03-27] MEDS: REMOVE OLD PATCH T-DERMAL SCH (09:00)
[2017-03-27] MEDS: NICOTINE 21 MG/24 HR PATCH T-DERMAL SCH (09:02)
--- NOTE | 2017-03-27 14:44 | HHI.PYPN ---
Subjective Remarks Patient seen for follow-up, chart reviewed. 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 Patient states that she has had decreased crying spells, less frequent moments of racing thoughts, continues to maintain her hygiene, sleeping has improved and is enjoying the groups and activities. Patient reports that she was visited by her sister which went well. Patient states that she was not able tolerate the gabapentin as a baby her too lethargic. Review of Systems Except as stated in HPI: all other systems reviewed are Neg Objective Alert: Yes [place]: Person, Place, Date, Situation Mood: Calm Affect: Appropriate Memory Intact: Comment (intact) Hallucinations: Other (denies) Delusions: No Delusion Type: Other (denies) Suicidal: Ideation (denies) Homicidal: Ideation (denies) Insight/Judgment Improved insight, impulse control and judgment Vitals/IOs Vital Signs Date Time Temp Pulse Resp B/P (MAP) Pulse Ox O2 Delivery O2 Flow Rate FiO2 03/27/17 06:16 98.6 61 16 98/53 (68) 03/26/17 18:00 100 Intake and Output 03/27/17 03/27/17 03/28/17 08:00 16:00 00:00 Intake Total 240 ml 240 ml Balance 240 ml 240 ml Assessment & Plan Problem List: (1) Bipolar disorder, curr episode mixed, severe, w/o psychotic features ICD Codes: F31.63 - Bipolar disorder, current episode mixed, severe, without psychotic features Status: Acute Assessment & Plan Patient this time appears to have some improvement in symptoms continues to have moments of manic symptoms as stated above. Patient has olanzapine increased to 20mg last evening. Patient has had increased response to upward titration olanzapine, will continue current treatment for now but if patient continues to have continued symptoms will likely add Depakote for mood stabilization. Discontinue gabapentin. Continue clonazepam 0.25 by mouth twice a day. Discharge planning in progress Justification for Cont. Inpt. At risk for decompensation if it lower level of care Con Florentino MD Mar 27, 2017 14:44
[2017-03-27] MEDS: LORazepam 1 MG TAB PO PRN ×2 (14:57→22:52)
[2017-03-27 18:39] VITALS: BP 105/60; PULSE 84; RESP 18; TEMP 98.6; O2SAT 98
[2017-03-27] MEDS: OLANZapine 10 MG TAB PO SCH (21:00)
[2017-03-28 06:31] VITALS: BP 98/60; PULSE 76; RESP 16; TEMP 98.5; O2SAT 98
[2017-03-28] MEDS: PANTOPRAZOLE SOD 20 MG DELAYED RELEASE TAB PO SCH (08:04)
[2017-03-28] MEDS: clonazePAM 0.5 MG TAB PO SCH (08:04)
[2017-03-28] MEDS: REMOVE OLD PATCH T-DERMAL SCH (08:05)
[2017-03-28] MEDS: NICOTINE 21 MG/24 HR PATCH T-DERMAL SCH (08:05)
[2017-03-28] MEDS ORDERED: CLON.5 PO (11:02)
[2017-03-28] MEDS ORDERED: PANT20 PO (11:02)
[2017-03-28] MEDS ORDERED: OLAN10TA PO (11:02)
--- NOTE | 2017-03-28 14:30 | HHI.DS ---
Psychiatry Discharge Summary Inpatient Psychiatric care?: Yes Advance Directive: No Reason Not Provided: pt has none Mental Health AdvanceDirective: No Health Care Proxy: No Admission Admission Date Mar 19, 2017 at 15:22 Admission Diagnosis: (1) Bipolar disorder, curr episode mixed, severe, w/o psychotic features ICD Code: F31.63 - Bipolar disorder, current episode mixed, severe, without psychotic features Brief History 41-year-old female Ethan acted by this physician for suicidal ideation and mixed bipolar disorder. This is the patient's first psychiatric hospitalization. Apparently over the last several weeks she has become increasingly manic with pressured speech, flight of ideas, racing thoughts, increasing goal-directed activity, inability to sleep, loss of appetite, excessive spending, etc. She was brought in today by her sister. The sister both in person and over the phone feels the patient's behavior has become much different than baseline. The sister confirmed the patient's suicidal thinking. The sister also provided information indicating the father is diagnosed with bipolar disorder. Patient is a very poor historian as she jumps from thought to thought in the midst of crying and making little sense. Tobacco Use In Past 30 Days: 5 or More Cigarettes/Day Alcohol Use: Never Hospital Course Patient is a 41 y/o woman with unclear past psychiatric history but past diagnoses of anxiety and panic disorder as per patient, no prior psychiatric hospitalizations, prior suicide attempt or self-injurious behavior, was recently under [place] act due to increased manic symptoms for the past several weeks in the context of recent ingestion of diet pills (phentermine) and marijuana use to manage her mood. Patient was transferred to the inpatient psychiatry unit for further evaluation and management. Patient was started on olanzapine 5mg PO HS for mood stabilization along with clonazepam 0.5mg PO q12hrs. Patient began to respond but required upward titration of olanzapine to 20mg PO HS and continued on clonazepam 0.25mg PO BID which she responded well to. Patient noted to have adequate sleep, no longer with pressured speech , more organized thought process, and stable mood. Upon discharge patient stated feeling awesome, expressed wanting to continue treatment and adhere to outpatient follow up for continuity of care. Supportive psychotherapy provided. Patient advised to call 911 or go to nearest ED in case of emergency. Results Blood Pressure 98 / 60 Vital Signs Date Time Temp Pulse Resp B/P (MAP) Pulse Ox O2 Delivery O2 Flow Rate FiO2 9/6/17 06:31 98.5 76 16 98/60 (73) 98 Laboratory Results Test 03/20/17 11:37 Cholesterol Level 195 MG/DL (120-200) HDL Cholesterol 56.1 MG/DL (40.0-60.0) Hemoglobin A1c 5.6 % (4.3-6.0) LDL Cholesterol 121 MG/DL (0-99) Triglycerides Level 88 MG/DL (42-150) Summary of Procedures None Pending results at discharge: No Medications # of Antipsychotic meds at D/C: 1 Approp Antipsych med options 1 - Minimum of three failed multiple trials of monotherapy. 2 - Documented plan to taper to monotherapy due to previous use of multiple meds OR cross-taper in progress at D/C. 3 - Documentation of augmentation of Clozapine. 4 - Justification other than those listed in allowable values 1-3, document here : Discharge Discharge Date: Mar 28, 2017 Discharge Diagnosis: (1) Bipolar disorder, curr episode mixed, severe, w/o psychotic features Diagnosis: Principal ICD Code: F31.63 - Bipolar disorder, current episode mixed, severe, without psychotic features Status: Acute Mental Status Exam at Disch Appearance/Behavior: appears stated age, in casual clothing, noted to be calm and cooperative with interview, fair eye contact Speech: normal rate, tone and prosody Mood: "awesome" Affect: euthymic TP: linear, future oriented TC: denies SI, HI, AVH or delusions Insight/Impulse control/Judgment: Fair Alert and oriented x 3 Pt Condition on Discharge: Fair Discharge Disposition: Discharge Home Discharge Instructions Diet Instructions: As Tolerated, No Restrictions Activities you can perform: Regular-No Restrictions Scheduled Appointment: Georgi Abdul Appointment Date: Mar 28, 2017 Appointment Time: 2:00 p.m. Discharge Time > 30 minutes Discharge/Advance Care Plan Health Problems: (1) Bipolar disorder, curr episode mixed, severe, w/o psychotic features Goals to promote your health * To prevent worsening of your condition and complications * To maintain your health at the optimal level Directions to meet your goals Take your medications as prescribed Follow your dietary instruction Follow activity as directed Keep your appointments as scheduled Take your immunizations and boosters as scheduled If your symptoms worsen call your PCP, if no PCP go to Urgent Care Center or Emergency Room For 12/02 questions related to your inpatient stay or results of tests pending at discharge, please contact Dr. Con Florentino at Smoking is Dangerous to Your Health. Avoid second hand smoking Con Florentino MD Mar 28, 2017 14:30
== END 2017-03-28 13:15 | disposition home or self-care (01) | DRG 885 ==
LOC: NEPD 12:00 → NEDA 15:22 → H270 20:17 → H260 21:55
PROVIDERS: ADMIT Student in an Organized Health Care Education/Training Program; ATTEND Student in an Organized Health Care Education/Training Program
DX: F31.63 Bipolar disorder, current episode mixed, severe, without psychotic features (principal); R45.851 Suicidal ideations; F12.90 Cannabis use, unspecified, uncomplicated; G47.00 Insomnia, unspecified; Z72.0 Tobacco use; Z81.8 Family history of other mental and behavioral disorders
CPT/HCPCS: 80053; 80061; 80307; 81001; 82306; 82607; 83036; 84443; 84703; 85025; 93005